=== PATIENT | male | born 1980 | race Caucasian/White ===

== ENCOUNTER 2017-06-12 23:43 | Emergency (ER) | payer OTHER ==
[~2017-06-12] VITALS: Ht 182.9 cm; Wt 89.9 kg
[2017-06-13 00:46] LABS: HEMATOCRIT 40.3 % (38.0-50.0); HEMOGLOBIN 14.4 G/DL (12.5-16.6); MCHC 35.7 G/DL (30.0-36.0); MCV 89.6 FL (86-99); PLATELET COUNT 340 K/uL (156-360); RBC DIS.WIDTH-SD 39.4 % (39-53); WHITE BLOOD COUNT 8.8 K/uL (4.1-10.2)
[2017-06-13 00:54] LABS: D-DIMER ELISA < 150.00 ng/mLDDU (<230)
[2017-06-13 00:58] LABS: ALBUMIN 4.9 g/dL (3.2-4.8); CHLORIDE 103 mEq/L (99-109); POTASSIUM 4.1 mEq/L (3.7-5.4); SODIUM 140 mEq/L (136-147)
[2017-06-13 01:00] LABS: GLUCOSE 106 mg/dL (70-99)
[2017-06-13 01:01] LABS: TOTAL PROTEIN 8.2 g/dL (6.4-8.3)
[2017-06-13 01:02] LABS: TOTAL BILIRUBIN 0.3 mg/dL (0.0-1.0)
[2017-06-13 01:04] LABS: ALKALINE PHOSPHATASE 56 IU/L (3-129); CREATININE 0.9 mg/dL (0.6-1.3); GFR ESTIMATE (CALCULATED) > 59 mL/min/ (58.99-99999)
[2017-06-13 01:05] LABS: UREA NITROGEN (BUN) 13 mg/dL (9-23)
[2017-06-13 01:06] LABS: AST (GOT) 51 IU/L (2-34)
[2017-06-13 01:07] LABS: ALT (GPT) 135 IU/L (3-49)
[2017-06-13 01:14] LABS: TROP-I INTERPRETATION NEGATIVE; TROPONIN-I < 0.01 ng/mL (0.0-0.30)
[2017-06-13 02:07] LABS: LIPASE 25 U/L (1.0-51.0)
[2017-06-13] MEDS ORDERED: PEPCID20 MG PO (02:43)
[2017-06-13 02:50] LABS: TROP-I INTERPRETATION NEGATIVE; TROPONIN-I < 0.01 ng/mL (0.0-0.30)
[2017-06-13 03:27] VITALS: BP 124/67
== END 2017-06-13 03:32 | disposition home or self-care (01) ==
LOC: EME → EDBD 23:43 → EME 23:43
PROVIDERS: Emergency Medicine
DX: R07.89 Other chest pain (principal); I45.10 Unspecified right bundle-branch block; E78.5 Hyperlipidemia, unspecified; J45.909 Unspecified asthma, uncomplicated; F41.9 Anxiety disorder, unspecified; F32.9 Major depressive disorder, single episode, unspecified
CPT/HCPCS: 80053; 83690; 84484; 85027; 85379; 93005; 99281; 99285; S0028